=== PATIENT | female | born 2000 | race Caucasian/White ===

== ENCOUNTER 2023-12-06 11:51 | Emergency (ER) | payer MEDICAID ==
[~2023-12-06] VITALS: Ht 175.3 cm; Wt 82.0 kg
[2023-12-06 11:55] VITALS: TEMP 98.3
[2023-12-06] MEDS ORDERED: METHYLPREDNISOLONE SOD SUCC 125MG/2ML (ACT-O-VIAL) IV STA (12:11)
[2023-12-06] MEDS ORDERED: KETOROLAC 30MG/ML VIAL IV STA (12:11)
[2023-12-06] MEDS ORDERED: IPRATROPIUM BROMIDE (0.02%) 0.5MG/2.5ML NEB HHN STA (12:11)
[2023-12-06] MEDS ORDERED: MAGNESIUM 2 G PREMIX 50 ML IV ONE (12:15)
[2023-12-06] MEDS ORDERED: SODIUM CHLORIDE 0.9% 1,000 ML IV ONE ×2 (12:15→15:45)
[2023-12-06 12:30] VITALS: PULSE 114; RESP 22; O2SAT 100
[2023-12-06 12:51] LABS: BASOPHILS % 0.4 % (0.0-2.0); HEMATOCRIT. 32.9 % (36.0-48.0); HEMOGLOBIN. 10.2 g/dL (12.0-16.0); MEAN CORPUSCULAR HEMOGLOBIN 17.9 pg (28.0-32.0); MEAN CORPUSCULAR HGB CONC 30.9 g/dL (31.0-37.0); MEAN PLATELET VOLUME 8.7 fl (7.4-10.4); MONOCYTES % 6.6 % (2.0-8.0); PLATELET 347 x1000/uL (130-400); RED BLOOD CELL COUNT 5.67 mill/uL (4.2-5.4); RED CELL DISTRIBUTION WIDTH 17.4 % (11.6-14.6); WHITE BLOOD COUNT 17.6 x1000/uL (4.5-11.0)
[2023-12-06 12:54] LABS: D-DIMER 0.75 mg/L FEU (<0.50); INR 1.1; PARTIAL THROMBOPLASTIN TIME 32.9 sec (23.4-31.0); PROTHROMBIN TIME 11.8 sec (9.6-11.0)
[2023-12-06 12:55] LABS: ADD RBC MORPHOLOGY YES; DIFFERENTIAL COMMENT 1
[2023-12-06] MEDS: ALBUTEROL (0.083%) 2.5MG/3ML NEB HHN SCH (13:06)
[2023-12-06 13:18] LABS: ANISOCYTOSIS 1+; MICROCYTOSIS 3+; PLATELET ESTIMATE NORMAL
[2023-12-06 13:26] LABS: HCG SCREEN NEGATIVE
[2023-12-06 14:54] LABS: CARBON DIOXIDE 20 mEq/L (21-32); CHLORIDE 101 mEq/L (98-107); GLUCOSE 93 mg/dL (70-105); POTASSIUM 3.2 mEq/L (3.5-5.1); SODIUM 134 mEq/L (136-145)
[2023-12-06 14:55] LABS: ALANINE AMINOTRANSFERASE 16 IU/L (10-49); ALBUMIN 4.2 g/dL (3.2-4.8); ASPARTATE AMINOTRANSFERASE 20 IU/L (<34); CALCIUM 8.8 mg/dL (8.7-10.4); CREATININE 0.7 mg/dL (0.6-1.0); PROTEIN TOTAL 8.3 g/dL (6.0-8.3); UREA NITROGEN BLOOD 8 mg/dL (9-23)
[2023-12-06 15:48] LABS: TROPONIN I HIGH SENSITIVITY < 4 ng/L (3.0-34)
[2023-12-06 16:58] LABS: TROPONIN I HIGH SENSITIVITY < 4 ng/L (3.0-34)
[2023-12-06 17:55] VITALS: BP 115/69; PULSE 123; RESP 17
[2023-12-06] MEDS ORDERED: IOHEXOL-300 100 ML BOTTLE ONE (23:07)
== END 2023-12-06 18:55 | disposition home or self-care (01) ==
LOC: ER 12:45 → EDBD 12:45 → ER 18:55
DX: U07.1 COVID-19 (principal); R07.89 Other chest pain; F12.10 Cannabis abuse, uncomplicated
CPT/HCPCS: 80053; 84703; 83880; 83605; 85025; 85379; 85610; 85730; 86850; 86900; 86901; 84484; 36415; 71045; 71275; 82803; 93005; 94644; 96361; 96365; 96375; 99285; Q9967; J1885; J3475; J2930; Z7610 ×4; J7030